=== PATIENT | male | born 1990 | race African-American/Black ===

== ENCOUNTER 2016-12-05 12:40 | Outpatient (CLI) | payer OTHER ==
--- NOTE | 2016-12-05 16:04 | MRI Report ---
EXAM: RIGHT KNEE MRI WITHOUT CONTRAST EXAM DATE: 12/05/2016 01:36 PM. CLINICAL HISTORY: Right knee pain, instability, and swelling. Previous meniscal and ACL tear. COMPARISON: None. TECHNIQUE: Multiplanar, multisequence T1-weighted and fluid-sensitive sequences of the knee without c ontrast. Other: None. FINDINGS: Bones and Articular Cartilage: Minimal marrow edema at the anterior aspect of the medial tibial plate au. Minimal marrow edema at the medial aspect of the medial tibial plateau. No acute fracture. Partia l-thickness articular cartilage fissures, grade 2 chondromalacia, and tiny subcortical cysts at the m edian ridge of the patella. Full-thickness articular cartilage fissures at the medial trochlear facet . No subluxations. Medial Meniscus: There is a bucket-handle type tear of the medial meniscus. Part of the anterior horn and body of the medial meniscus is displaced laterally within the lateral aspect of the medial joint compartment and medial aspect of the intercondylar notch. Lateral Meniscus: The lateral meniscus is intact. Cruciate Ligaments: The proximal one-half of the anterior cruciate ligament is thin and irregular, unger ggestive of a chronic tear. The tear appears to be more likely partial thickness in degree. The poste rior cruciate ligament is intact. Collateral Ligaments: The medial collateral and lateral collateral ligamentous structures are intact. Tendons: The quadriceps, patellar, semimembranosus, and popliteus tendons are unremarkable. Musculature: No edema or fatty atrophy. Other: No effusion. No popliteal cyst. No loose bodies. The medial and lateral retinacula are intact . The subcutaneous tissues and fat pads are unremarkable. IMPRESSION: 1. 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 2. Bucket-handle tear of the medial meniscus. Part of the anterior horn and body of the medial menisc us is displaced laterally within the lateral aspect of the medial joint compartment and within the me dial aspect of the intercondylar notch. 3. Chronic-appearing, probably partial-thickness, tear involving the proximal half of the anterior cr uciate ligament. [facility] MUSCULOSKELETAL RADIOLOGY SECTION Referring Provider Line: [phone] SITE ID: [id number]
== END 2016-12-05 12:41 | disposition home or self-care (01) ==
LOC: DI 12:40
PROVIDERS: ATTEND General Practice
DX: M22.41 Chondromalacia patellae, right knee (principal); S83.211A Bucket-handle tear of medial meniscus, current injury, right knee, initial encounter

== ENCOUNTER 2017-11-08 16:29 | Emergency (ER) | payer OTHER ==
[2017-11-08] MEDS ORDERED: DEXAMETHASONE 10 MG/ML VIAL PO STA (17:18)
--- NOTE | 2017-11-08 17:21 | ED Physician Documentation ---
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 He has body aches and pains he has significant phlegm production with green and black spot phlegm and pain when he swallows. Review of Systems Constitutional: reports: Fever, Chills, Myalgias, Fatigue, Sweats Eyes: denies: Decreased vision Ears: denies: Ear pain Nose: reports: Rhinorrhea / runny nose, Congestion Throat: reports: Sore throat Cardiac: denies: Chest pain / pressure, Palpitations Respiratory: reports: Dyspnea, Cough GI: denies: Abdominal Pain, Nausea, Vomiting : denies: Dysuria PD PAST MEDICAL HISTORY - Past Medical History Past Medical History: No - Past Surgical History Past Surgical History: No - Present Medications Home Medications: Ambulatory Orders Medication Instructions Recorded Confirmed Azithromycin [Zithromax] 250 mg PO DAILY #6 tablet 11/08/17 - Allergies Allergies/Adverse Reactions: Allergies Allergy/AdvReac Type Severity Reaction Status Date / Time No Known Drug Allergies Allergy Verified 11/08/17 16:51 - Social History Does the pt smoke?: No Smoking Status: Never smoker Does the pt drink ETOH?: Yes Does the pt have substance abuse?: No - Immunizations Immunizations are current?: Yes PD ED PE NORMAL - Vitals Vital signs reviewed: Yes (normal ) - General General: Alert and oriented X 3, No acute distress, Well developed/nourished - HEENT HEENT: Atraumatic, PERRL, EOMI, Other (The right TM is inflamed with flattening of the landmarks. The left is mostly clear. ) - Neck Neck: Supple, no meningeal sign, No bony TTP - Cardiac Cardiac: RRR, No murmur - Respiratory Respiratory: No respiratory distress, Clear bilaterally - Abdomen Abdomen: Soft, Non tender - Back Back: No CVA TTP, No spinal TTP - Derm Derm: Normal color, Warm and dry, No rash - Extremities Extremities: No deformity, No edema - Neuro Neuro: Alert and oriented X 3, No motor deficit, No sensory deficit, Normal speech Eye Opening: Spontaneous Motor: Obeys Commands Verbal: Oriented GCS Score: 15 - Psych Psych: Normal mood, Normal affect Results - Vitals Vitals: Vital Signs - 24 hr 11/08/17 11/08/17 16:46 17:27 Temperature 37.1 C 37.4 C Heart Rate 100 102 H Respiratory 19 16 Rate Blood Pressure 133/72 H 121/67 O2 Saturation 97 96 Oxygen O2 Source Room air - Labs Labs: Laboratory Tests 11/08/17 17:16 Group A Strep Rapid Negative PD MEDICAL DECISION MAKING - ED course Complexity details: reviewed results, re-evaluated patient, considered differential, d/w patient ED course: 26-year-old male with a sore throat has otitis on exam and he is administered dexamethasone 10 mg orally[address] We will place on some antibiotic. - Sepsis Event Vital Signs: Vital Signs - 24 hr 11/08/17 11/08/17 16:46 17:27 Temperature 37.1 C 37.4 C Heart Rate 100 102 H Respiratory 19 16 Rate Blood Pressure 133/72 H 121/67 O2 Saturation 97 96 Oxygen O2 Source Room air Departure - Departure Disposition: 01 Home, Self Care Clinical Impression: Otitis media Qualifiers: Otitis media type: suppurative Chronicity: acute Laterality: right Recurrence: not specified as recurrent Spontaneous tympanic membrane rupture: without spontaneous rupture Qualified Code(s): H66.001 - Acute suppurative otitis media without spontaneous rupture of ear drum, right ear Instructions: ED Otitis Media Acute Adult Follow-Up: [facility] [Provider Group] Prescriptions: Azithromycin [Zithromax] 250 mg PO DAILY #6 tablet Forms: Activity restrictions
[2017-11-08 17:27] VITALS: BP 121/67
== END 2017-11-08 17:59 | disposition home or self-care (01) ==
LOC: ED 16:29
DX: H66.001 Acute suppurative otitis media without spontaneous rupture of ear drum, right ear (principal)
CPT/HCPCS: 87070; 87430; 99283

== ENCOUNTER 2018-04-13 12:15 | Emergency (ER) | payer OTHER ==
[2018-04-13 12:32] VITALS: BP 119/79
--- NOTE | 2018-04-13 13:25 | XRAY Report ---
Reason: injury Procedure Date: 04/13/2018 Accession Number: [id number] / [id number] Procedure: XR - Knee 4 View LT CPT Code: FULL RESULT: EXAM: LEFT KNEE RADIOGRAPHY EXAM DATE: 04/13/2018 01:13 PM. CLINICAL HISTORY: Injury. COMPARISON: KNEE RT W/O 12/05/2016 12:45 PM. TECHNIQUE: 4 views. FINDINGS: Bones: On the lateral view, there is a deep sulcus sign involving the articular surface of the lateral femoral condyle. Cortical thickening and bony irregularity involving the tibial tubercle, which may be related to old trauma or possibly healed [place]Schl[place] disease. Bones are otherwise intact and normally aligned. Joints: Trace joint effusion. Joint spaces are preserved. Soft Tissues: Unremarkable. IMPRESSION: Deep sulcus sign involving the articular surface of the lateral femoral condyle, which can have an association with anterior cruciate ligament injury. Clinical correlation recommended. Trace joint effusion. [facility]
[2018-04-13] MEDS ORDERED: HYDROcod/ACETAM 5/325 MG TABLET PO STA (13:42)
--- NOTE | 2018-04-13 13:45 | ED Physician Documentation ---
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 He has a history of conservatively managed meniscus and ACL injuries on the right a few years ago. Last night was jumping and came down wrong and felt like the knee popped and now cannot walk or bear weight and has moderate to severe left knee pain. No other injuries.) Review of Systems Constitutional: reports: Reviewed and negative Cardiac: reports: Reviewed and negative Respiratory: reports: Reviewed and negative PD PAST MEDICAL HISTORY - Past Surgical History Past Surgical History: No - Present Medications Home Medications: Ambulatory Orders Medication Instructions Recorded Confirmed Hydrocodone/Acetaminophen 1 - 2 each PO Q6H PRN #14 tablet 04/13/18 [Hydrocodon-Acetaminophen 5-325] - Allergies Allergies/Adverse Reactions: Allergies Allergy/AdvReac Type Severity Reaction Status Date / Time No Known Drug Allergies Allergy Verified 04/13/18 12:32 - Social History Does the pt smoke?: No Smoking Status: Never smoker Does the pt drink ETOH?: Yes Does the pt have substance abuse?: No - Immunizations Immunizations are current?: Yes PD ED PE NORMAL - Vitals Vital signs reviewed: Yes - General General: Alert and oriented X 3, No acute distress - Extremities Extremities: Other (Left knee is without effusion. There is no bony tenderness of the knee, but he is slightly tender over the LCL. Testing of all the ligaments, ACL, PCL, LCL, and MCL are tight. He does have positive grind testing both ways.) - Neuro Neuro: Alert and oriented X 3, Normal speech Results - Vitals Vitals: Vital Signs - 24 hr 04/13/18 12:30 Temperature 36.4 C L Heart Rate 104 H Respiratory 20 Rate Blood Pressure 119/79 O2 Saturation 96 Oxygen O2 Source Room air - Rads (name of study) L knee 4v Radiology: EMP read contemporaneously (Deep sulcus sign involving the articular surface of the lateral femoral condyle which can be associated with ACL injury.) Departure - Departure Disposition: 01 Home, Self Care Clinical Impression: Internal derangement of left knee Condition: Good Record reviewed to determine appropriate education?: Yes Instructions: ED Meniscal Injury Knee Poss Prescriptions: Hydrocodone/Acetaminophen [Hydrocodon-Acetaminophen 5-325] 1 - 2 each PO Q6H PRN #14 tablet PRN Reason: pain Comments: As discussed, the examination suggest against a severe ligament injury of the knee but potentially a meniscus problem. That said the x-ray was suggestive of ligament injury. Either way keep the splint on and you can walk and bear weight as tolerated with or without the crutches as needed. [place] and for all for either physical therapy or MRI imaging. Return for new or worsening symptoms. Do not drink or drive while taking narcotic pain medication. Note that many narcotic pain relievers also contain Tylenol/acetaminophen. Please ensure that your total dose of acetaminophen from all sources does not exceed 3 g (3000 mg) per day. You may get constipated while on this medication. Take a stool softener such as Colace twice a day while you are on it. Also add an [id number] laxative such as senna or MiraLAX on any day that you do not have a bowel movement. If you received a narcotic pain medication or sedative while in the emergency department, do not drive for the next 24 hours. Forms: Activity restrictions
== END 2018-04-13 14:11 | disposition home or self-care (01) ==
LOC: ED 12:15
DX: M23.91 Unspecified internal derangement of right knee (principal)
CPT/HCPCS: 73564; 99283; A9270

== ENCOUNTER 2018-07-17 10:28 | Day surgery (SDC) | payer OTHER ==
--- NOTE | 2018-07-17 10:16 | ANESTHESIA ---
Pre-Anesthesia VS, & Labs - NPO >8 hours - Diagnosis L ACL rupture, meniscus tear (Nilo Alvarez) - Procedure L AACL reconstruction, meniscal root repair (Nilo Alvarez) Vital Signs: Last Vital Signs Temp 36.4 C L 07/17/18 10:36 Pulse 91 07/17/18 10:36 Resp 16 07/17/18 10:36 BP 136/88 H 07/17/18 10:36 Pulse Ox 99 07/17/18 10:36 (Nilo Alvarez) Height 6 ft 3 in Weight (kg) 101.6 kg Body Mass Index 29.9 Home Medications and Allergies Home Medications: Ambulatory Orders Phenylephrine HCl [Sudafed PE] 07/08/18 Active Medications Cefazolin Sodium 2 gm/ Sodium (Chloride) 100 mls @ 200 mls/hr IV ONCE LANDON Stop: 07/17/18 14:00 Vancomycin HCl 2 gm/ Sodium (Chloride) 500 mls @ 250 mls/hr IV ONCE LANDON Stop: 07/17/18 13:00 Phenylephrine HCl [Sudafed PE] 07/08/18 Allergies/Adverse Reactions: Allergies Allergy/AdvReac Type Severity Reaction Status Date / Time No Known Drug Allergies Allergy Verified 07/08/18 12:03 Anes History & Medical History - Anesthetic History Anesthesia Complications: reports: No previous complications Family history of Anesthesia Complications: Denies Family history of Malignant Hyperthermia: Denies - Medical History Cardiovascular: reports: None Pulmonary: reports: None (recent productive cough. LS clear t/o today) Gastrointestinal: reports: None Urinary: reports: None Musculoskeletal: reports: Other Endocrine/Autoimmune: reports: None Skin: reports: None Smoking Status: Never smoker - Surgical History General: Other Exam General: Alert, Oriented x3, Cooperative Dental: WNL Mouth Openin Fingerbreadth Neck Mobility: Normal Mallampati classification: II Thyromental Distance: 4-6 cm Respiratory: Lungs clear, Normal breath sounds Cardiovascular: Regular rate Neurological: Normal speech Mental/Cognitive Status: Alert/Oriented X3 Cognitive Status: Within normal limits Plan Anesthesia Type: General Regional Block: Per Surgeon's request for Post Op pain control Consent for Procedure(s) Verified and Reviewed: Yes Code Status: Attempt Resuscitation ASA classification: 1-Healthy patient Is this case an emergency?: No
[~2018-07-17 10:28] MED LIST: BUPIVACAINE 0.25% PF 30 ML VIAL ONE; EPINEPHrine 1 MG/ML AMP ONE; LACTATED RINGERS 1,000 ML IV ONE; VANCOMYCIN INJ 2 GM in SODIUM CHLORIDE 0.9% 500 ML IV SCH; ceFAZolin 2 GM in SODIUM CHLORIDE 0.9% 100ML 100 ML IV SCH
[2018-07-17] MEDS ORDERED: EPINEPHrine 1 MG/ML AMP IR ONE (12:28)
[2018-07-17] MEDS ORDERED: BUPIVACAINE 0.25% PF 30 ML VIAL SUBQ ONE (12:31)
[2018-07-17] MEDS ORDERED: fentaNYL 100 MCG/2 ML VIAL IVP ONE (13:00)
[2018-07-17] MEDS ORDERED: ONDANSETRON 4 MG/2 ML VIAL IVP ONE (13:00)
[2018-07-17] MEDS ORDERED: PHENYLEPHRINE 50 MG/5 ML VIAL IV ONE (13:00)
[2018-07-17] MEDS ORDERED: LIDOCAINE-MPF 2% 5 ML VIAL IM ONE (13:00)
[2018-07-17] MEDS ORDERED: METOPROLOL 5 MG/5 ML VIAL IVP ONE (13:00)
[2018-07-17] MEDS ORDERED: PROPOFOL 200 MG/20 ML VIAL IVP ONE (13:00)
[2018-07-17] MEDS ORDERED: ROCURONIUM 50 MG/5 ML VIAL IVP ONE (13:00)
[2018-07-17] MEDS ORDERED: MIDAZOLAM 2 MG/2 ML VIAL IVP ONE (13:00)
[2018-07-17] MEDS ORDERED: ESMOLOL 100 MG/10 ML VIAL IVP ONE (13:00)
[2018-07-17] MEDS ORDERED: DEXAMETHASONE 4 MG/ML VIAL IVP ONE (13:00)
[2018-07-17] MEDS ORDERED: LACTATED RINGERS 1,000 ML IV ONE (14:00)
[2018-07-17] MEDS ORDERED: oxyCODONE 5 MG TABLET PO PRN (15:13)
[2018-07-17] MEDS ORDERED: ONDANSETRON 4 MG/2 ML VIAL IVP PRN (15:13)
--- NOTE | 2018-07-17 15:29 | OPERATIVE REPORT ---
Operative Report - Other Other Information/Narrative: Date of Surgery: 17 Jul 2018 Pre-Op Diagnosis: Left ACL tear, possible lateral meniscus root tear, cartilage lesions Procedure: Arthroscopic left ACL reconstruction with patellar tendon autograft, medial femoral condyle chondroplasty, lateral femoral condyle chondroplasty, loose body removal, manipulation under anesthesia Postop Diagnosis: Left ACL tear, medial femoral condyle cartilage lesion, lateral femoral condyle cartilage lesion, loose body Primary Surgeon: Malik Chen Secondary Surgeon: Bright SANTOS Complications: None Tourniquet Time: 130 minutes EBL: 25 cc Implants: Arthrex BTB Tightrope. Arthrex 9 mm x 20 mm Metal Interference Screw Graft Dimensions: Patellar bone block was 22 mm. Tibial bone block was 30 mm. Total length was 97. Tunnel Size: 10 mm on both sides Postoperative Protocol: Routine ACL. No meniscus work Indication For Surgery: 27-year-old male sustained an injury to his left knee while playing basketball. He had a ACL tear possible lateral meniscus tear as well as an impact injury to the lateral femoral condyle. He had a delayed presentation to physical therapy and was very stiff. He performed physical therapy and return to near normal motion except he can only flex to 115 degrees. His quadricep strength improved to the point that surgery was possible. There was concern for a potential root tear and so we wanted to do the surgery as soon as his leg had appropriate motion and strength. He desired to return to pivoting sports and had symptomatic instability. The risks, benefits, and alternatives were discussed. Risks include pain, bleeding, infection, damage to nearby structures and cartilage, lack of symptom relief, need for further surgery, DVT, PE, stroke, and . Written consent was obtained. Examination Under Anesthesia: ROM is 0 to 115 degrees.. Stable dial at 30 & 90 degrees. Stable to varus and valgus stressing at 0 & 30 degrees. 2B Janae. Abnormal Pivot shift. No mechanical sensation Diagnostic Arthroscopy: A loose body had synovialized anteriorly near the ante rior horn of the lateral meniscus. Synovium was exuberant and injected, there was significant amounts of scar tissue anteriorly that was bleeding. Patella cartilage intact. Trochlear cartilage grade 1 softening. Medial femoral condyle cartilage grade 2 partial-thickness superficial lesion measuring 10 x 15 mm. Medial tibial plateau cartilage intact. Medial meniscus intact. ACL was torn from the lateral wall and scarred to the PCL. PCL was intact. Lateral femoral condyle cartilage showed a large indentation. There was a large area of partial-thickness cartilage loss that was nearly the entire condyle. lateral tibial plateau cartilage grade 1 softening. Lateral meniscus was intact. Procedure in Detail: The patient was met in the pre-operative hold area on the day of the procedure. The operative extremity was signed and questions were answered. The patient was brought to the operating room and a general anesthetic was administered. Supine position was used and bony prominences were padded. An examination under anesthesia was performed. Due to his limited flexion I then performed a manipulation under anesthesia by gradually applying pressure. Many small popping sensations were felt and he was able to be flexed up to 135 degrees. Standard prepping and draping was performed. A time out confirmed patient identification, laterality, procedure, allergies, antibiotics, and images. An Esmarch was used to exsanguinate the limb and the tourniquet was elevated to 250 mmHg. Patellar Tendon Graft Labelle: A 6 cm incision was made just medial to the midline of the knee from the inferior pole of the patellar tendon to the tibial tubercle. Sharp dissection was brought down to the peritenon and full-thickness skin flaps were created. I then made a midline longitudinal incision in the peritenon and dissected it off the underlying patellar tendon. I then measured the width of the tendon and made ramos for the central third. A 10 blade was used to cut the tendon at these ramos in line with its fibers from the patella to the tibial tubercle. I then used Bovie electrocautery to karen out my patellar and tibial bone blocks at 22 mm for the patella and a 30 mm for the tibia. I then straighten the knee and harvested a triangular bone block from the patella and a trapezoidal bone block from the tibia using a sagittal saw and a curved osteotome. There were no associated fractures. I then brought the graft to the back table and prepped it for the tibia to be 10 mm and the patella to be 9.5 mm. The patella was bulletized in a single 2.0 mm drill hole was placed. 2 drill holes were placed in the tibia. A standard diagnostic arthroscopy of the knee was performed through anterolateral and anteromedial portal sites. There was exuberant scar tissue an teriorly which made it difficult to see anything when the case started. The anteromedial portal was created under direct visualization after localizing with a spinal needle. The findings can be found above. Prior to the diagnostic arthroscopy I had to do a significant lysis of adhesions anteriorly and removal of scar tissue. A hard fragment was felt at the anterior horn of the lateral meniscus which is likely from the lateral femoral condyle. This was freed from the surrounding synovium and brought out of the joint. I then performed a diagnostic arthroscopy with the findings as above. I used the sucker shaver to debride the unstable portions of the medial femoral condyle and the lateral femoral condyle. ACL Prep: I then used a sucker shaver and a radiofrequency ablation wand to rel ease all residual ACL tissue off of the lateral wall. I debrided all excess tissue from the notch. I placed the camera into the anteromedial portal and ensured that I was cleared all the way to the back wall. I then brought the flip cutter aiming device through the lateral portal. I positioned it into the central position of the [place] ACL footprint on the femur ensuring to leave a 2 mm back wall and stay off of the distal articular cartilage. Once satisfied with the position, the bullet was brought down to the skin and a karen was made. A 2 cm longitudinal skin incision was made and the IT band was split in line with its fibers. A sen rake was used to retract the IT band posterior and the bullet was brought down to the lateral femoral wall. An appropriately sized flip cutter was then drilled into the notch. It was then flipped and the lateral wall was scored confirming an appropriate position. The bullet was then malleted into place and a 28mm femoral tunnel was drilled. Bony debris was removed with a shaver. A fiberstick suture was brought into the joint, retrieved out the lateral portal, and clamped to itself. I then identified the ACL footprint on the tibia and set the tibial guide at 55. I aimed to have the guide pin come out 7 mm anterior to the PCL and in line with the posterior borders of the anterior horn of the lateral meniscus, on the lateral border of the medial tibial spine. The guidewire was then brought into the joint. The knee was then straightened to confirm that it would not impinge on the notch. The guidewire was clamped with a Andrew. The skin was then protected and the tibial tunnel was drilled with the appropriate sized reamer. The passing fiberwire was then brought through the tibial tunnel. The graft was then loaded onto the tightrope and the graft was marked at end of the bone block. The tightrope sutures were then passed and the button was brought out of the skin over the lateral femur. Point the femoral bone block was in the notch. I then grabbed the bone block with a Andrew and pushed posteriorly to be in line with the femoral tunnel. The bone block was then delivered into the femoral tunnel and the ink ramos could no longer be seen. I then sequentially tightened the tight rope sutures and guided the button back down beneath the IT band and visualized it on the lateral femoral cortex. The knee was then cycled 20 times with tension on the graft. I then placed a large bump under the distal femur the pulled on the tibial bone block sutures. There was 0 mm of excess bone block coming from the tibia. A posterior drawer was placed on to the proximal tibia. The guidewire was then placed into the tibial tunnel and the tibial screw was placed with excellent bony purchase. Janae had been restored. I then brought the arthroscope back into the joint and probed the graft finding it to have excellent tension. The tight rope was then retightened and tied with 5 knots. Final images were taken. The tourniquet was then deflated The wounds were copiously irrigated. I then placed morselized bone into the patellar defect and DBX putty into the tibial defect. The peritenon was then closed with a running 0 Vicryl. The IT band was closed with interrupted 0 Vicryl, the subdermal tissues with 2 O Vicryl, and the skin with running Monocryl. Steri-Strips were applied and 20 cc of 0.5% Marcaine was placed under the incisions. sterile dressing was placed. The ROM brace was placed and was locked out in full extension. He was awakened and transferred to the recovery room.
[2018-07-17] MEDS ORDERED: fentaNYL 100 MCG/2 ML VIAL ONE (15:51)
[2018-07-17] MEDS ORDERED: oxyCODONE 5 MG TABLET ONE (16:16)
[2018-07-17 16:37] VITALS: BP 140/91
== END 2018-07-17 10:29 | disposition home or self-care (01) ==
LOC: SDS 10:28
PROVIDERS: ATTEND Orthopaedic Surgery
PROC: 0SBD4ZZ Excision of Left Knee Joint, Percutaneous Endoscopic Approach (ICD-10-PCS; 2018-07-17)
PROC: 0SCD4ZZ Extirpation of Matter from Left Knee Joint, Percutaneous Endoscopic Approach (ICD-10-PCS; 2018-07-17)
PROC: 0SNDXZZ Release Left Knee Joint, External Approach (ICD-10-PCS; 2018-07-17)
PROC: 0MRP47Z Replacement of Left Knee Bursa and Ligament with Autologous Tissue Substitute, Percutaneous Endoscopic Approach (ICD-10-PCS; principal; 2018-07-17 11:30)
DX: M23.8X2 Other internal derangements of left knee (principal); M23.42 Loose body in knee, left knee; M94.8X6 Other specified disorders of cartilage, lower leg
CPT/HCPCS: 29888; A9270; C1713; J3370; J7120

== ENCOUNTER 2018-08-20 09:12 | Emergency (ER) | payer OTHER ==
[2018-08-20 09:19] VITALS: BP 139/78
--- NOTE | 2018-08-20 09:22 | ED Physician Documentation ---
History of Present Illness - Stated complaint Stated Complaint: KNEE PX/POST SURGERY - Chief complaint Chief Complaint: General - History obtained from History obtained from: Patient - Additonal information Additional information: Patient is a previously healthy 27-year-old male presenting with left knee pain, swelling, and drainage. Patient received meniscus and ligamentous surgery from Dr. Chen about 1 month ago on this knee and has been using his immobilizer and attending PT appropriately. Patient was seen by Dr. Chen yesterday and it was noted that patient's left knee was slightly warm, swollen, and with drainage, although mostly clear drainage. At that time, patient denies any intervention such as joint aspiration, but was placed on antibiotics which she started last night. Today, patient reports consistent symptoms, but occasional purulent drainage. Patient does report abrasion to the skin overlying the medial aspect of the left knee. Patient denies fevers, chills, vomiting, diarrhea, or other complaints. No other improving or worsening factors noted. Review of Systems Skin: reports: Abrasion (s) Musculoskeletal: reports: Extremity pain, Joint pain, Joint swelling PD PAST MEDICAL HISTORY - Past Medical History Cardiovascular: None Respiratory: None (recent productive cough. LS clear t/o today) Endocrine/Autoimmune: None GI: None : None HEENT: Chronic sinusitis Psych: None Musculoskeletal: Other Derm: None - Past Surgical History Past Surgical History: Yes General: Other Ortho: ACL reconstruction (Ligament and meniscus surgery) - Present Medications Home Medications: Ambulatory Orders Medication Instructions Recorded Confirmed Phenylephrine HCl [Sudafed PE] 07/08/18 - Allergies Allergies/Adverse Reactions: Allergies Allergy/AdvReac Type Severity Reaction Status Date / Time No Known Drug Allergies Allergy Verified 08/20/18 09:19 - Social History Does the pt smoke?: No Smoking Status: Never smoker Does the pt drink ETOH?: Yes Does the pt have substance abuse?: No - Immunizations Immunizations are current?: Yes PD ED PE NORMAL - Vitals Vital signs reviewed: Yes - General General: Alert and oriented X 3, No acute distress, Well developed/nourished - HEENT HEENT: Atraumatic, Moist mucous membranes - Cardiac Cardiac: Strong equal pulses (Cap refill brisk) - Respiratory Respiratory: No respiratory distress - Derm Derm: Warm and dry, No rash, Other (Pinpoint superficial abrasion to left medial knee without drainage present. Mild swelling and faint erythema to left knee.). No: Normal color - Extremities Extremities: No deformity, No tenderness to palpate, Other (Left leg knee immobilizer in place. No objective paresthesias or strength changes left lower extremity. Limited range of motion given immobilizer.) - Neuro Neuro: Alert and oriented X 3, No motor deficit, No sensory deficit - Psych Psych: Normal mood, Normal affect Results - Vitals Vitals: Vital Signs - 24 hr 08/20/18 09:16 Temperature 36.6 C Heart Rate 92 Respiratory 14 Rate Blood Pressure 139/78 H O2 Saturation 100 Oxygen O2 Source Room air PD MEDICAL DECISION MAKING - ED course Complexity details: reviewed old records, considered differential, d/w patient ED course: Patient had recent meniscus and ligamentous surgery to his left knee and is currently in a knee immobilizer and attending physical therapy. Patient was seen by Dr. Chen, his surgeon, yesterday when it was noted that his left knee was slightly swollen, warm, erythematous, and draining from a superficial abrasion. It is unclear if this is simple cellulitis or a deeper infection such as joint infection. Based on symptoms and physical exam, have higher suspicion for cellulitis. Superficial abrasion does not drain material in the ED and therefore culture not obtained. At this time, given recent surgery, patient already on antibiotics, and recent orthopedic evaluation, do not feel joint aspiration is necessary. Discussed this with patient. We both felt appropriate with further watchful waiting and supportive cares, as well as getting antibiotics additional time to start working. Recommended holding off on PT in the next day or so to allow for further healing and close follow-up with Dr. Chen later this week. Patient voiced understanding and is comfortable with discharge plan. Departure - Departure Disposition: 01 Home, Self Care Clinical Impression: Cellulitis Qualifiers: Site of cellulitis: extremity Site of cellulitis of extremity: lower extremity Laterality: left Qualified Code(s): L03.116 - Cellulitis of left lower limb Condition: Good Instructions: ED Infec Skin Cellulitis Follow-Up: Malik Chen MD [Provider Admit Priv/Credential] - Within 3 Days Comments: Please continue use of knee immobilizer, nonweightbearing, use of crutches as instructed. Recommend skipping PT in the next 1 to 2 days to allow for infection to heal. Please continue antibiotics other medications as prescribed. Please follow-up with Dr. Chen in next 1 to 2 days return to ED sooner if symptoms worsen or you have further concerns including fever, chills, or other issues.
== END 2018-08-20 09:49 | disposition home or self-care (01) ==
LOC: ED 09:12
DX: L03.116 Cellulitis of left lower limb (principal); S80.212A Abrasion, left knee, initial encounter; X58.XXXA Exposure to other specified factors, initial encounter; Z98.890 Other specified postprocedural states; R05 Cough; J32.9 Chronic sinusitis, unspecified
CPT/HCPCS: 99282; 99283

== ENCOUNTER 2019-03-11 08:23 | Emergency (ER) | payer OTHER ==
[2019-03-11 08:37] VITALS: BP 136/102
[2019-03-11] MEDS ORDERED: LIDOCAINE 2%-EPI 1:100000 20 ML MDV SUBQ STA (08:43)
--- NOTE | 2019-03-11 08:48 | ED Physician Documentation ---
History of Present Illness - Stated complaint Stated Complaint: BILAT UNDERARM PX - Chief complaint Chief Complaint: Wound - History obtained from History obtained from: Patient - History of Present Illness Timing: How many days ago (several) Pain level max: 7 Pain level now: 6 - Additonal information Additional information: B axillary "boils" per pt. Patient has a history of MRSA. No fever. No vomiting. Worse with palpation. Better with rest. He states that he squeezed 1 of them last night and pus came out. Review of Systems Constitutional: denies: Fever, Chills GI: denies: Vomiting, Diarrhea Skin: denies: Rash Musculoskeletal: denies: Neck pain, Back pain Neurologic: denies: Headache PD PAST MEDICAL HISTORY - Past Medical History Cardiovascular: None Respiratory: None (recent productive cough. LS clear t/o today) Endocrine/Autoimmune: None GI: None : None HEENT: Chronic sinusitis Psych: None Musculoskeletal: Other Derm: None - Past Surgical History Past Surgical History: Yes General: Other Ortho: ACL reconstruction (Ligament and meniscus surgery) - Present Medications Home Medications: Ambulatory Orders Medication Instructions Recorded Confirmed Phenylephrine HCl [Sudafed PE] 07/08/18 Cephalexin [Keflex] 500 mg PO Q6H #28 capsule 03/11/19 Ibuprofen [Motrin] 800 mg PO Q8H PRN #30 tablet 03/11/19 Sulfamethox/Trimeth 800/160 1 each PO BID #14 tablet 03/11/19 [Bactrim Ds 800/160] - Allergies Allergies/Adverse Reactions: Allergies Allergy/AdvReac Type Severity Reaction Status Date / Time No Known Drug Allergies Allergy Verified 03/11/19 08:35 - Social History Does the pt smoke?: No Smoking Status: Never smoker Does the pt drink ETOH?: Yes Does the pt have substance abuse?: No - Immunizations Immunizations are current?: Yes PD ED PE NORMAL - Vitals Vital signs reviewed: Yes - General General: Alert and oriented X 3, No acute distress - HEENT HEENT: Moist mucous membranes - Neck Neck: Supple, no meningeal sign - Cardiac Cardiac: RRR - Respiratory Respiratory: No respiratory distress, Clear bilaterally - Derm Derm: Warm and dry - Extremities Extremities: Other (R axilla - 1x2cm indurated fluctuant area. no drainage. L axilla - 0.5x0.5cm indurated area with no fluctuance. NVI. ) - Neuro Neuro: Alert and oriented X 3 Results - Vitals Vitals: Vital Signs - 24 hr 03/11/19 08:35 Temperature 37.0 C Heart Rate 90 Respiratory 18 Rate Blood Pressure 136/102 H O2 Saturation 100 Oxygen O2 Source Room air Procedures - Abscess I&D (location) B axilla Preparation: Confirmed with ultrasound, Lidocaine 2 %, With epi Incision: Incised with scalpel, Purulent drainage, Irrigated Other: Pt tolerated well, Dressing applied, Antibiotic prescribed PD MEDICAL DECISION MAKING - ED course Complexity details: considered differential, d/w patient ED course: Bilateral small axillary abscesses drained. Tolerated well. We will place on antibiotics for home. Patient counseled regarding signs and symptoms for which I believe and urgent re-evaluation would be necessary. Patient with good understanding of and agreement to plan and is comfortable going home at this time This document was made in part using voice recognition software. While efforts are made to proofread this document, sound alike and grammatical errors may occur. Departure - Departure Disposition: 01 Home, Self Care Clinical Impression: Abscess Condition: Good Instructions: ED Abscess IandD Follow-Up: your,doctor in 3 days for wound check [Other] Prescriptions: Cephalexin [Keflex] 500 mg PO Q6H #28 capsule Ibuprofen [Motrin] 800 mg PO Q8H PRN #30 tablet PRN Reason: PAIN &/OR FEVER Sulfamethox/Trimeth 800/160 [Bactrim Ds 800/160] 1 each PO BID #14 tablet Comments: Take all antibiotics until gone. Return if you worsen. Follow-up with your doctor for further care. You should have a repeat evaluation in 2 to 3 days. Forms: Activity restrictions Discharge Date/Time: 03/11/19 10:07
[2019-03-11] MEDS ORDERED: SULFAMETH/TRIMETH DS 800/160 MG TABLET PO STA (09:50)
== END 2019-03-11 10:07 | disposition home or self-care (01) ==
LOC: ED 08:23
DX: L02.412 Cutaneous abscess of left axilla (principal); L02.411 Cutaneous abscess of right axilla; Z86.14 Personal history of Methicillin resistant Staphylococcus aureus infection
CPT/HCPCS: 10061; 99283; 99284; A9270; 10060; 85025; 85610

== ENCOUNTER 2019-03-24 09:08 | Emergency (ER) | payer OTHER ==
--- NOTE | 2019-03-24 09:43 | ED Physician Documentation ---
PD HPI HEENT - Stated complaint Stated Complaint: COUGH/FEVER - Chief complaint Chief Complaint: Fever - History obtained from History obtained from: Patient - History of Present Illness Timing - onset: How many days ago (2-3) Timing - duration: Days (2-3) Timing - details: Gradual onset Location: Right ear, Left ear, Nose, Throat Associated symptoms: Fever, Congestion, Cough. 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 He has been sick for 2 or 3 days just feeling really weak, nasal congestion had some vomiting and diarrhea and he developed some subjective fevers yesterday was sweating and chills and they sent him home early. He coughed up some green mucus this morning with blood in it. He shows me a picture today and there are several spots of bright red blood noted. Says he occasionally vapes but is not a smoker. He is also complaining of sore throat and earache. Last emesis was yesterday and even though he has not eaten today has been able keep down fluids. He did get a flu vaccine this year. Review of Systems Constitutional: reports: Fever (Subjective), Chills, Fatigue, Sweats Eyes: denies: Loss of vision Ears: reports: Ear pain Nose: reports: Rhinorrhea / runny nose, Congestion, Sinus pressure / pain Throat: reports: Sore throat Cardiac: reports: Chest pain / pressure, Palpitations Respiratory: reports: Dyspnea, Cough, Hemoptysis GI: reports: Nausea, Vomiting, Diarrhea PD PAST MEDICAL HISTORY - Past Medical History Cardiovascular: None Respiratory: None Endocrine/Autoimmune: None GI: None : None HEENT: Chronic sinusitis Psych: None Musculoskeletal: Other Derm: None - Past Surgical History Past Surgical History: Yes General: Other Ortho: ACL reconstruction - Present Medications Home Medications: Ambulatory Orders Medication Instructions Recorded Confirmed Phenylephrine HCl [Sudafed PE] 07/08/18 Cephalexin [Keflex] 500 mg PO Q6H #28 capsule 03/11/19 Ibuprofen [Motrin] 800 mg PO Q8H PRN #30 tablet 03/11/19 Sulfamethox/Trimeth 800/160 1 each PO BID #14 tablet 03/11/19 [Bactrim Ds 800/160] Azithromycin [Zithromax] 0 mg PO DAILY #6 tablet 03/24/19 - Allergies Allergies/Adverse Reactions: Allergies Allergy/AdvReac Type Severity Reaction Status Date / Time No Known Drug Allergies Allergy Verified 03/24/19 09:23 - Social History Does the pt smoke?: No Smoking Status: Never smoker Does the pt drink ETOH?: Yes Does the pt have substance abuse?: No - Immunizations Immunizations are current?: Yes PD ED PE NORMAL - Vitals Vital signs reviewed: Yes - General General: Alert and oriented X 3, No acute distress, Well developed/nourished - HEENT HEENT: Atraumatic, PERRL, EOMI, Ears normal, Moist mucous membranes, Other (Boggy nasal mucosa without active bleeding noted.) - Neck Neck: Supple, no meningeal sign, No adenopathy - Cardiac Cardiac: RRR, No murmur, Strong equal pulses - Respiratory Respiratory: No respiratory distress, Clear bilaterally - Abdomen Abdomen: Normal bowel sounds, Soft, Non tender, Non distended, No organomegaly - Derm Derm: Normal color, Warm and dry, No rash - Neuro Neuro: Alert and oriented X 3, candles pourer 2-12 intact, No motor deficit, No sensory deficit, Normal speech - Psych Psych: Normal mood, Normal affect Results - Vitals Vitals: Vital Signs - 24 hr 03/24/19 03/24/19 09:23 10:03 Temperature 37.8 C H Heart Rate 101 H 100 Respiratory 17 17 Rate Blood Pressure 142/84 H 127/89 H O2 Saturation 98 99 Oxygen O2 Source Room air - Labs Labs: Laboratory Tests 03/24/19 09:22 Influenza A (Rapid) Negative Influenza B (Rapid) Negative PD MEDICAL DECISION MAKING - ED course Complexity details: reviewed results, d/w patient ED course: Patient had a negative influenza screen. He is coughing up blood-tinged thick yellow phlegm. I elected to place him on a Zithromax Z-Shalom. He is encouraged to use ibuprofen or Tylenol [id number] for fever and discomfort. Use cwto-[id number]-ivonwey cough medication such as Delsym. Departure - Departure Disposition: Home, Self Care Clinical Impression: Bronchitis Fever Qualifiers: Fever type: unspecified Qualified Code(s): R50.9 - Fever, unspecified Condition: Good Instructions: ED Upper Resp Infec Abx Tx Follow-Up: [facility] [place] [Provider Group] Prescriptions: Azithromycin [Zithromax] 0 mg PO DAILY #6 tablet Comments: Take the Zithromax as prescribed 2 tablets today 1 tablet each day after that for a total of 5 days. Take with food. Use [id number] cough suppressant such as Delsym. Take Tylenol and/or ibuprofen for pain and/or fever. [place] you are not improving in 2 to 3 days. Forms: Activity restrictions
[2019-03-24] MEDS ORDERED: ACETAMINOPHEN 325 MG TABLET PO STA (09:44)
[2019-03-24 11:15] VITALS: BP 132/98
== END 2019-03-24 11:15 | disposition home or self-care (01) ==
LOC: ED 09:08
DX: J40 Bronchitis, not specified as acute or chronic (principal); R50.9 Fever, unspecified
CPT/HCPCS: 87275; 87276; 99283; 99284; A9270

== ENCOUNTER 2020-08-05 21:41 | Emergency (ER) | payer OTHER ==
--- NOTE | 2020-08-05 21:49 | ED Physician Documentation ---
PD HPI HEENT - Stated complaint Stated Complaint: NOSE PX, FACIAL SWELLING - History obtained from History obtained from: Patient - History of Present Illness Timing - onset: How many days ago (3-4) Timing - details: Gradual onset Pain level now: 5 Location: Nose Improves: Nothing Worsens: Other (palpation) Associated symptoms: Facial swelling. No: Fever Similar symptoms before: Has not had sx before Recently seen: Clinic - Additional information Additional information: patient complains of 3 to 4 days of facial swelling, left-sided. At the onset of symptoms, he was having focal swelling and pain limited to inside the left nare. The air involve gradually enlarged and eventually the swelling and pain involved the outer aspect of the nose on the left side, and subsequently spread to the left side of his face, specifically the infraorbital region to the left upper lip. He was seen in the outpatient setting two days ago and was prescribed doxycycline of which he has taken two full days thus far. He says he was also given an injection of an antibiotic, does not know which one. symptoms worsening despite antibiotic Review of Systems Constitutional: reports: Reviewed and negative Nose: reports: Other (left nare swelling, pain) PD PAST MEDICAL HISTORY - Past Medical History Cardiovascular: None Respiratory: None Endocrine/Autoimmune: None GI: None : None HEENT: Chronic sinusitis Psych: None Musculoskeletal: Other Derm: None - Past Surgical History Past Surgical History: Yes General: Other Ortho: ACL reconstruction - Present Medications Home Medications: Ambulatory Orders Medication Instructions Recorded Confirmed Amox/Clav 875/125 [Augmentin 1 tablet PO Q12H 10 Days #20 tablet 08/05/20 875/125 Tab] Doxycycline Hyclate [Vibramycin] 100 mg PO BID 08/05/20 08/05/20 HYDROcod/ACETAM 5/325 [[place] 5/325] 1 - 2 tablet PO Q6H PRN #14 tablet 08/05/20 Ibuprofen [Motrin] 600 mg PO Q6H PRN #20 tab 08/05/20 Mupirocin 2% Oint [Bactroban 2% 1 applic TOP BID #50 gm 08/05/20 Oint] Sulfamethox/Trimeth 800/160 1 each PO BID #20 tablet 08/05/20 [Bactrim Ds 800/160] - Allergies Allergies/Adverse Reactions: Allergies Allergy/AdvReac Type Severity Reaction Status Date / Time No Known Drug Allergies Allergy Verified 08/05/20 22:22 - Social History Does the pt smoke?: No Smoking Status: Never smoker Does the pt drink ETOH?: Yes Does the pt have substance abuse?: No - Immunizations Immunizations are current?: Yes PD ED PE NORMAL - Vitals Vital signs reviewed: Yes - General General: Alert and oriented X 3, No acute distress, Well developed/nourished - Neck Neck: Supple, no meningeal sign PD ED PE EXPANDED - HEENT HEENT Visual: 1 - swelling, tenderness 2 - abscess, swelling, tenderness Results - Vitals Vitals: Oxygen O2 Source Room air - Labs Labs: Microbiology 08/05/20 22:16 Wound Culture - Final Abscess Staphylococcus Aureus PD MEDICAL DECISION MAKING - ED course Complexity details: considered differential, d/w patient ED course: small intranasal abscess, left nare on inner aspect of nasal ala with mild cellulitis from left side of nose to skin overlying left maxillary sinus. using tip of TB needle/syringe, the abscess was unroofed and pus expressed and sent for culture. will change to bactrim and augmentin due to worsening despite two full days of previous antibiotic Departure - Departure Disposition: 01 Home, Self Care Clinical Impression: Facial cellulitis Condition: Good Instructions: ED Cellulitis Facial Follow-Up: [facility] [Provider Group] Prescriptions: Amox/Clav 875/125 [Augmentin 875/125 Tab] 1 tablet PO Q12H 10 Days #20 tablet Sulfamethox/Trimeth 800/160 [Bactrim Ds 800/160] 1 each PO BID #20 tablet Mupirocin 2% Oint [Bactroban 2% Oint] 1 applic TOP BID #50 gm Ibuprofen [Motrin] 600 mg PO Q6H PRN #20 tab PRN Reason: Pain HYDROcod/ACETAM 5/325 [[place] 5/325] 1 - 2 tablet PO Q6H PRN #14 tablet PRN Reason: Pain Comments: Discontinue the doxycycline. Start the two new antibiotics as prescribed (bactri m, augmentin). Apply the antibiotic ointment to the infected area inside your left nostril twice per day for ten days. Discharge Date/Time: 08/05/20 22:33
[2020-08-05 21:57] VITALS: BP 126/91
[2020-08-05] MEDS ORDERED: IBUPROFEN 600 MG TABLET PO STA (22:20)
[2020-08-05] MEDS ORDERED: HYDROcod/ACET 5/325 Prepack 4 PO STA (22:22)
[2020-08-05] MEDS ORDERED: SULFAMETH/TRIMETH DS 800/160 MG TABLET PO STA (22:22)
[2020-08-05] MEDS ORDERED: AMOX/CLAV 875 MG/125 MG TABLET PO STA (22:22)
== END 2020-08-05 22:33 | disposition home or self-care (01) ==
LOC: ED 21:41
DX: J34.0 Abscess, furuncle and carbuncle of nose (principal); L03.211 Cellulitis of face
CPT/HCPCS: 10160; 87070; 87181; 87205; 99283; A9270

== ENCOUNTER 2020-11-27 11:24 | Emergency (ER) | payer MEDICAID ==
[2020-11-27 11:42] VITALS: BP 131/95
--- NOTE | 2020-11-27 12:35 | ED Physician Documentation ---
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 No fevers or chills. He did not see a spider. No recent travel.) Review of Systems Constitutional: reports: Reviewed and negative Eyes: reports: Reviewed and negative Ears: reports: Reviewed and negative Nose: reports: Reviewed and negative PD PAST MEDICAL HISTORY - Past Medical History Cardiovascular: None Respiratory: None Endocrine/Autoimmune: None GI: None : None HEENT: Chronic sinusitis Psych: None Musculoskeletal: Other Derm: None - Past Surgical History Past Surgical History: Yes General: Other Ortho: ACL reconstruction - Present Medications Home Medications: Ambulatory Orders Medication Instructions Recorded Confirmed Amox/Clav 875/125 [Augmentin 1 tablet PO Q12H 10 Days #20 tablet 08/05/20 875/125 Tab] Doxycycline Hyclate [Vibramycin] 100 mg PO BID 08/05/20 08/05/20 HYDROcod/ACETAM 5/325 [[place] 5/325] 1 - 2 tablet PO Q6H PRN #14 tablet 08/05/20 Ibuprofen [Motrin] 600 mg PO Q6H PRN #20 tab 08/05/20 Mupirocin 2% Oint [Bactroban 2% 1 applic TOP BID #50 gm 08/05/20 Oint] Sulfamethox/Trimeth 800/160 1 each PO BID #20 tablet 08/05/20 [Bactrim Ds 800/160] Sulfamethox/Trimeth 800/160 1 each PO BID #14 tablet 11/27/20 [Bactrim Ds 800/160] - Allergies Allergies/Adverse Reactions: Allergies Allergy/AdvReac Type Severity Reaction Status Date / Time No Known Drug Allergies Allergy Verified 11/27/20 11:41 - Social History Does the pt smoke?: No Smoking Status: Never smoker Does the pt drink ETOH?: Yes Does the pt have substance abuse?: No - Immunizations Immunizations are current?: Yes PD ED PE NORMAL - Vitals Vital signs reviewed: Yes - General General: Alert and oriented X 3, No acute distress - Derm Derm: Other (There is a tiny lesion that is too small to characterize above the pelvic brim in the midaxillary line on the left. Could be a tiny abscess measuring 2 cm around.) - Neuro Neuro: Alert and oriented X 3, Normal speech Results - Vitals Vitals: Vital Signs - 24 hr 11/27/20 11:39 Temperature 36.2 C L Heart Rate 93 Respiratory 16 Rate Blood Pressure 131/95 H O2 Saturation 99 Oxygen O2 Source Room air Procedures - General procedure General procedure: Needle aspiration of the lesion was done, nothing was returned. Could be a very very small/early abscess, will start Bactrim given his history of MRSA. Departure - Departure Disposition: 01 Home, Self Care Clinical Impression: Abscess Condition: Good Record reviewed to determine appropriate education?: Yes Instructions: ED Staph Infec Abx Tx Only Prescriptions: Sulfamethox/Trimeth 800/160 [Bactrim Ds 800/160] 1 each PO BID #14 tablet Comments: We are performing a wound culture, the results should be done in 48-72 hours. If antibiotic change is necessary we will call you. Return if worse in the meantime, especially if you develop increased pain, fevers, cannot keep down the medication. Otherwise follow-up with your physician in approximately 2-3 days.
== END 2020-11-27 13:10 | disposition home or self-care (01) ==
LOC: ED 11:24
DX: L02.211 Cutaneous abscess of abdominal wall (principal); Z86.14 Personal history of Methicillin resistant Staphylococcus aureus infection
CPT/HCPCS: 10160; 87070; 87181; 87205

== ENCOUNTER 2020-11-29 13:57 | Emergency (ER) | payer MEDICAID ==
--- NOTE | 2020-11-29 16:30 | ED Physician Documentation ---
History of Present Illness - Stated complaint Stated Complaint: SPIDER BITE - Chief complaint Chief Complaint: General - Additonal information Additional information: 30-year-old male presents emergency department for evaluation of a skin in fection on his left hip. He reports that 5 nights ago he slapped his something away in his sleep at night which he thinks may have been a spider. The next morning he noticed an area of redness on the skin that slowly got larger. He did go to his provider and did have a swab completed that did not show MRSA but despite being on Bactrim for 3 days the redness and swelling has in creased. He has not had any fevers. He does report a longstanding history of skin infections most recently receiving Bactrim about 9 months ago. Denies a history of diabetes. Review of Systems Constitutional: denies: Fever Eyes: reports: Reviewed and negative Throat: reports: Reviewed and negative Cardiac: reports: Reviewed and negative Respiratory: reports: Reviewed and negative GI: reports: Reviewed and negative : reports: Reviewed and negative Skin: reports: Lesions Musculoskeletal: reports: Reviewed and negative PD PAST MEDICAL HISTORY - Past Medical History Past Medical History: Yes Cardiovascular: None Respiratory: None Neuro: None Endocrine/Autoimmune: None GI: None : None HEENT: Chronic sinusitis Psych: None Musculoskeletal: Other Derm: None - Past Surgical History Past Surgical History: Yes General: Other Ortho: ACL reconstruction - Present Medications Home Medications: Ambulatory Orders Medication Instructions Recorded Confirmed Amox/Clav 875/125 [Augmentin 1 tablet PO Q12H 10 Days #20 tablet 08/05/20 875/125 Tab] Doxycycline Hyclate [Vibramycin] 100 mg PO BID 08/05/20 08/05/20 HYDROcod/ACETAM 5/325 [George 5/325] 1 - 2 tablet PO Q6H PRN #14 tablet 08/05/20 Ibuprofen [Motrin] 600 mg PO Q6H PRN #20 tab 08/05/20 Mupirocin 2% Oint [Bactroban 2% 1 applic TOP BID #50 gm 08/05/20 Oint] Sulfamethox/Trimeth 800/160 1 each PO BID #20 tablet 08/05/20 [Bactrim Ds 800/160] Sulfamethox/Trimeth 800/160 1 each PO BID #14 tablet 11/27/20 [Bactrim Ds 800/160] Clindamycin [Cleocin] 450 mg PO TID #63 cap 11/29/20 - Allergies Allergies/Adverse Reactions: Allergies Allergy/AdvReac Type Severity Reaction Status Date / Time No Known Drug Allergies Allergy Verified 11/29/20 14:11 - Social History Does the pt smoke?: No Smoking Status: Never smoker Does the pt drink ETOH?: Yes Does the pt have substance abuse?: No - Immunizations Immunizations are current?: Yes PD ED PE NORMAL - General General: Alert and oriented X 3, No acute distress - Cardiac Cardiac: RRR, No murmur - Respiratory Respiratory: Clear bilaterally - Abdomen Abdomen: Normal bowel sounds, Soft, Non tender, Non distended - Back Back: No CVA TTP, No spinal TTP - Derm Derm: Normal color, Warm and dry, No rash, Other (3 x 4 cm area of erythema and induration on the left hip. No palpable fluctuance. Limited bedside ultrasound does not reveal a collection of fluid or abscess formation.) Results - Vitals Vitals: Vital Signs - 24 hr 11/29/20 11/29/20 14:07 15:58 Temperature 36.4 C L 37.2 C Heart Rate 93 77 Respiratory 14 18 Rate Blood Pressure 120/78 100/72 O2 Saturation 97 97 Oxygen O2 Source Room air PD MEDICAL DECISION MAKING - ED course Complexity details: d/w patient ED course: [id number] male presents the emergency department with worsening cellulitis of the left hip. Reports a spider bite 5 days ago. This is day 3 of Bactrim without improvement in symptoms. Limited bedside ultrasound did not reveal an abscess. I did offer an incision and drainage but patient would like to defer at this time unless a new course of antibiotics fails to improve. Therefore we will start him on clindamycin advise he discontinue the Bactrim. Emergent worrisome return precautions were discussed. Departure - Departure Disposition: 01 Home, Self Care Clinical Impression: Cellulitis of left hip Condition: Stable Record reviewed to determine appropriate education?: Yes Instructions: Cellulitis Dc Prescriptions: Clindamycin [Cleocin] 450 mg PO TID #63 cap Comments: Marcin you were seen today for evaluation of a skin infection on your left hip. We have no way of determining what caused to this. At this time I would like you to stop taking the Bactrim. Please fill the presc ription for the clindamycin and take 3 times daily for the next week. The infection may not be improving if you are attempting to squeeze fluid or infection out so I recommend that you stop this practice at this time. We did do a limited ultrasound at the bedside today and did not find any collection of fluid underneath the skin. However if despite starting a new antibiotic you have increased redness, swelling pain or feel the infection is not improving then please return to the emergency department at that time we would need to consider further treatment such as a formal incision and drainage. Your prescription for the clindamycin was sent electronically to [facility]
[2020-11-29 16:41] VITALS: BP 100/70
== END 2020-11-29 16:40 | disposition home or self-care (01) ==
LOC: ED 13:57
DX: L03.116 Cellulitis of left lower limb (principal)
CPT/HCPCS: 99282; 99284